=== PATIENT | male | born 1965 | race African-American/Black ===

== ENCOUNTER 2020-10-29 12:32 | Inpatient (IN) | payer OTHER ==
[~2020-10-29] VITALS: Ht 172.7 cm; Wt 69.7 kg
[2020-10-29 12:48] VITALS: BP 155/98
[2020-10-29 12:59] LABS: URINE BILIRUBIN 1+ (Negative); URINE BLOOD NEGATIVE (Negative); URINE CLARITY CLEAR; URINE COLOR YELLOW; URINE GLUCOSE-RANDOM* TRACE (Negative); URINE KETONES TRACE (Negative); URINE NITRITE-REFLEX NEGATIVE (Negative); URINE PROTEIN (DIPSTICK) 2+ (Negative); URINE SPECIFIC GRAVITY 1.025 (1.005-1.035); URINE UROBILINOGEN >= 8.0 E.U./dl (0.2-1.0)
[2020-10-29 13:03] LABS: ICTOTEST (BILI CONFIRMATORY) Positive (Negative); URINE LEUKOCYTES-REFLEX 1+ (Negative)
[2020-10-29 13:25] LABS: CALCIUM 8.4 mg/dL (8.5-10.1); CREATININE 0.8 mg/dL (0.7-1.3); POTASSIUM 3.2 mmol/L (3.5-5.1)
[2020-10-29 13:29] LABS: HYALINE CASTS 0-3 Few /LPF (None Seen); SQUAMOUS >10 Many /LPF (0-3); URINE RBC None Seen /HPF (NONE SEEN); URINE WBC-REFLEX 6-15 Few /HPF (0-5)
[2020-10-29 13:30] LABS: BACTERIA-REFLEX 1-9 Few /HPF (None Seen); CRYSTALS None Seen /LPF (None Seen)
[2020-10-29 13:48] LABS: HEMOGLOBIN 6.8 gm/dL (14.0-18.0); MCV 63.5 fL (80.0-100.0)
[2020-10-29 13:50] LABS: HEMATOCRIT 23.8 % (42.0-52.0); MCH 18.3 pg (26.0-34.0); MCHC 28.8 g/dL (28.0-37.0); PLATELET COUNT 257 thou/uL (150-400); RBC 3.74 mil/uL (4.50-6.00); RDW 23.3 % (10.5-14.5); WBC 5.3 thou/uL (4.0-11.0)
[2020-10-29 13:55] LABS: ALBUMIN 2.9 g/dL (3.4-5.0); TOTAL BILIRUBIN 2.3 mg/dL (0.2-1.0)
[2020-10-29 13:56] LABS: TOTAL PROTEIN 7.2 g/dL (6.4-8.2)
[2020-10-29 14:34] LABS: ABSOLUTE NEUTROPHILS 3.4 thou/uL (1.4-8.2)
[2020-10-29 14:35] LABS: ANISOCYTOSIS 3+
[2020-10-29 14:36] LABS: HYPOCHROMASIA 2+; MICROCYTES 3+
--- NOTE | 2020-10-29 14:55 | EKG ---
[address] [address] ELECTROCARDIOGRAM REPORT Name: SOHAIL ARRIOLA Room #: [facility] M.R.#: [id number] Admission: Attend Phys: Discharge: Date of : 65 Report #: [id number] [facility] ED Test Date: 2020-10-29 Test Time: 13:24:03 Pat Name: SOHAIL ARRIOLA Department: Room: Gender: Tailer In: : 1965 Requested By: Leidy Jerome Order Number: [id number] MD: Justyn Pacheco Measurements Intervals [place] Rate: 102 P: 26 AK: 163 QRS: 31 QRSD: 96 T: 198 QT: 355 QTc: 463 Interpretive Statements Sinus tachycardia Probable left atrial enlargement Nonspecific T abnrm, anterolateral leads No previous ECG available for comparison Electronically Signed On 10-29-2020 14:55:29 CDT by Justyn Pacheco [email or web address] <ELECTRONICALLY SIGNED> By: Justyn Pacheco MD, [facility] 10/29/20 1455 1324 1324 Justyn Pacheco MD, FACC /EPI
[2020-10-29 16:48] LABS: AMP/METHAMP Negative (Negative); BARBITURATES Negative (Negative); BENZODIAZEPINES Negative (Negative); COCAINE Negative (Negative); METHADONE Negative (Negative); OPIATES Negative (Negative); PCP Negative (Negative)
[2020-10-29 16:55] LABS: INR 1.29; PROTIME 13.9 Seconds (10.5-12.1)
[2020-10-29 17:17] LABS: % SATURATION 4 % (20-39); IRON 17 ug/dL (65-175); TIBC 449 ug/dL (250-450)
[2020-10-29 18:02] VITALS: BP 176/111
[2020-10-29 19:09] VITALS: BP 145/95
[2020-10-29 19:30] VITALS: BP 133/100
[2020-10-30] VITALS (9 sets, daily range): BP systolic 96–144; BP diastolic 65–90
--- NOTE | 2020-10-30 02:58 | NUR ---
pt arrived on the unit around 1914, alert and orientedx4, sr on tele, denies pain, admission assessment,hx and education completed and as charted, meds given as per mar, no needs at this time, will continue to monitor and follow poc
[2020-10-30 05:24] LABS: RDW 22.5 % (10.5-14.5)
[2020-10-30 05:27] LABS: HEMATOCRIT 22.2 % (42.0-52.0); HEMOGLOBIN 6.5 gm/dL (14.0-18.0); MCH 18.6 pg (26.0-34.0); MCHC 29.1 g/dL (28.0-37.0); MCV 63.8 fL (80.0-100.0); RBC 3.48 mil/uL (4.50-6.00); WBC 5.2 thou/uL (4.0-11.0)
[2020-10-30 05:44] LABS: CREATININE 0.9 mg/dL (0.7-1.3); POTASSIUM 3.1 mmol/L (3.5-5.1)
[2020-10-30 05:48] LABS: ALBUMIN 3.1 g/dL (3.4-5.0); MAGNESIUM 1.8 mg/dL (1.8-2.4); PHOSPHORUS 2.9 mg/dL (2.5-4.9)
--- NOTE | 2020-10-30 13:27 | NUR ---
TOOK OVER CARE FOR PATIENT AT 0700. PATIENT ALERT AND ORIENTATED. TRANSFUSED 1 UNIT PRBC. PATIENT TOLERATED INFUSION. VITAL SIGNS WITHIN NORMAL LIMITS. PATIENT DENIES SHORTNESS OF BREATH AND CHEST PAIN. PATIENT RESTING AT THIS TIME IN BED. DENIES ANY ADDITIONAL NEEDS. FALL PRECAUTIONS IN PLACE.
[2020-10-30 19:20] LABS: HEMATOCRIT 27.7 % (42.0-52.0); HEMOGLOBIN 7.9 gm/dL (14.0-18.0)
[2020-10-31] VITALS (7 sets, daily range): BP systolic 132–149; BP diastolic 86–91
--- NOTE | 2020-10-31 05:28 | NUR ---
a&ox4, sr on tele, denies pain or sob, assessments a charted, 24-hr urine collection in place, orders for k+ replacement received and implemented, abdpmen remains distended, r. testicular swelling noted, denies pain, no needs at this time, vss, will continue to monitor and follow poc
[2020-10-31 05:36] LABS: HIV ANTIBODY Non Reactive (Non Reactive)
[2020-10-31 06:05] LABS: HAV IgM AB (ANTI-HAV IgM) Negative (Negative); HEPATITIS B SURFACE AG Negative (Negative); HEPATITIS C VIRUS AB <0.1 (0.0-0.9)
--- NOTE | 2020-10-31 11:46 | NUR ---
PT ALERT AND ORIENTED TIMES FOUR. VSS. PT DENIES PAIN/SOA. PT TOLERATES CLEAR LIQUID DIET TODAY. GI PROCEDURES ORDER FOR TOMORROW. PT UP AB ELEONORA WITH STEADY GAIT. WILL CONTINUE TO MONITOR.
[2020-10-31 16:46] LABS: COLLECTION DURATION 24 hours; TOTAL VOLUME 3250 mL
[2020-11-01 04:21] VITALS: BP 154/95
--- NOTE | 2020-11-01 04:46 | NUR ---
pt alert and oriented, aware of gi procedures scheuled today, bowel prep completed, denies pain or soa, vss, assessments as charted, no needs at this time, will continue to monitor per poc
[2020-11-01 05:02] LABS: CALCIUM 8.8 mg/dL (8.5-10.1); CREATININE 0.9 mg/dL (0.7-1.3); POTASSIUM 3.4 mmol/L (3.5-5.1)
[2020-11-01 08:45] VITALS: BP 159/104
--- NOTE | 2020-11-01 09:01 | 2DMMODE ---
[facility] [place] [address] 2 D/M-MODE ECHOCARDIOGRAM Name: SOHAIL ARRIOLA Room #: 207-P ADM IN M.R.#: [id number] Admission: 10/29/20 Attend Phys: Isaac Whitehead Discharge: Date of : 65 Report #: [id number] THIS REPORT FOR: cc: NO FAMILY PHYSICIAN or PCP NO FAMILY PHYSICIAN or PCP Justyn Pacheco MD [facility] ~ APPROVED REPORT Study performed: 11/01/2020 08:17:04 EXAM: Comprehensive 2D, Doppler, and color-flow Echocardiogram Patient Location: Bedside Room #: 207 Status: routine BSA: 1.84 HR: 76 bpm BP: 154/95 mmHg Rhythm: NSR Other Information Study Quality: Good Indications Short of breath, anasarca. Hx: ETOH, drug and tob abuse. 2D Dimensions IVSd: 11.33 (7-11mm) LVOT Diam: 21.80 (18-24mm) LVDd: 54.94 mm PWd: 11.49 (7-11mm) LVDs: 46.90 (25-40mm) Left Atrium: 46.71 (27-40mm) Aortic Root: 31.91 mm Volumes Left Atrial Volume (Systole) Single Plane 4CH: 105.47 mL Single Plane 2CH: 95.60 mL LA ESV Index: 60.00 mL/m2 Aortic Valve AoV Peak Jan.: 1.05 m/s AO Peak Gr.: 4.37 mmHg LVOT Max P.23 mmHg LVOT Max V: 0.75 m/s JULIAN Vmax: 2.66 cm2 [facility] [address] [place] [address] 2 D/M-MODE ECHOCARDIOGRAM Name: SOHAIL ARRIOLA Room #: 207-P [facility] IN ..#: [id number] Admission: 10/29/20 Attend Phys: Isaac Cárdenas Discharge: Date of : 65 Report #: [id number] Mitral Valve E/A Ratio: 3.6 MV Decel. Time: 115.59 ms MV E Max Jan.: 0.96 m/s MV A Jan.: 0.27 m/s MV PHT: 33.52 ms IVRT: 87.66 ms Pulmonary Valve PV Peak Jan.: 0.69 m/s PV Peak Gr.: 1.90 mmHg Tricuspid Valve TR Peak Jan.: 2.58 m/s RAP Estimate: 10.00 mmHg TR Peak Gr.: 27.00 mmHg PA Pressure: 37.00 mmHg Left Ventricle The left ventricle is normal size. There is normal left ventricular wall thickness. Left ventricular systolic function is moderate to severely decreased. LVEF is 30-35%. Severe diastolic dysfunction is present. Right Ventricle Right ventricle is dilated. Right ventricle is mildly hypokinetic. Atria Left atrium is severely dilated. Right atrium is mildly dilated. Aortic Valve The aortic valve is normal in structure. Trace aortic regurgitation. There is no aortic valvular stenosis. Mitral Valve The mitral valve is normal in structure. Moderate mitral regurgitation. Tricuspid Valve The tricuspid valve is normal in structure. Mild tricuspid regurgitation. Estimated PAP is 37mmHg. Pulmonic Valve The pulmonary valve is normal in structure. Trace pulmonic regurgitation. [facility] [address] [place] [address] 2 D/M-MODE ECHOCARDIOGRAM Name: SOHAIL ARRIOLA Room #: 207-P ADM IN .R.#: [id number] Admission: 10/29/20 Attend Phys: Isaac Cárdenas Discharge: Date of : 65 Report #: [id number] Great Vessels The aortic root is normal in size. IVC is normal in size and collapses <50% with inspiration. Pericardium Small pericadial effusion. <Conclusion> Normal left ventricle size/wall thickness Global hypokinesis ejection fraction 30-35% Right ventricle mildly dilated/moderately hypokinetic Left atrium moderately to severely dilated Mildly dilated right atrium Normal aortic valve structure and function Moderate mitral valve insufficiency Mild tricuspid valve insufficiency Pulmonary systolic pressure estimated 37 mmHg Normal aortic root size Small posterior pericardial effusion <ELECTRONICALLY SIGNED> By: Justyn Pacheco MD, FACC 11/01/20900 0 0 Justyn Pacheco MD, FACC /INF
[2020-11-01 09:34] LABS: HEMATOCRIT 28.1 % (42.0-52.0); HEMOGLOBIN 8.1 gm/dL (14.0-18.0); MCH 19.6 pg (26.0-34.0); MCHC 28.8 g/dL (28.0-37.0); MCV 68.2 fL (80.0-100.0); RBC 4.12 mil/uL (4.50-6.00); RDW 26.3 % (10.5-14.5); WBC 6.5 thou/uL (4.0-11.0)
[2020-11-01 12:15] VITALS: BP 98/47
[2020-11-01 16:05] VITALS: BP 158/102
[2020-11-01 20:49] VITALS: BP 137/84
--- NOTE | 2020-11-02 03:07 | NUR ---
PT CARE ASSUMED WITH PT SITTING IN THE CHAIR WATCHING TV .PT IS A/O X4.PT IS UP AD ELEONORA.PT DENIED PAIN, NAUSEA,VOMITIONG AND DIARRHEA.PT TAKE MEDS WHOLE WITH NO ISSUES.PT ON ROOM AIR.WAITING FOR CARDIOLOGY TO SEE .WILL CONTINUE TO MONITOR PER POC
[2020-11-02 04:45] VITALS: BP 132/81
[2020-11-02 08:30] VITALS: BP 148/85
[2020-11-02 08:57] LABS: URINE CREATININE 25.07 mg/dL; URINE CREATININE (GM/24H) 1 g/24hr (0.95-2.49); URINE PROTEIN (MG/DL) < 6.0 mg/dL; URINE PROTEIN mg/24 hr ND mg/24hr (<149.1)
[2020-11-02 09:30] LABS: ALBUMIN 3.5 g/dL (3.4-5.0); DIRECT BILIRUBIN 1.3 mg/dL (<0.1-0.2); TOTAL BILIRUBIN 2.2 mg/dL (0.2-1.0); TOTAL PROTEIN 7.7 g/dL (6.4-8.2)
--- NOTE | 2020-11-02 12:15 | P ---
[facility] [place] [address] PROCEDURE REPORT Name: SOHAIL ARRIOLA Room #: 207-P [facility] IN M.R.#: [id number] Admission: 10/29/20 Attend Phys: Isaac Whitehead Discharge: Date of : 65 Report #: [id number] THIS REPORT FOR: cc: NO FAMILY PHYSICIAN or PCP NO FAMILY PHYSICIAN or PCP Rodney Amin MD ~ cc: Isaac Whitehead MD DATE OF SERVICE: 11/01/2020 PROCEDURE PERFORMED: Upper endoscopy. HISTORY OF PRESENT ILLNESS: The patient is a 55-year-old male who was admitted with generalized weakness and anemia. Transfused 1 unit of packed cells. He does report blood in the stools at times. No previous history of endoscopy. He has a history of alcohol abuse. CT scan of the abdomen and pelvis showing fatty liver changes and minimal ascites. He denies any nausea, vomiting, heartburn or hematemesis. Plan is for EGD and colonoscopy today. Stools were Hemoccult negative x 1. No family history of colon cancer. DESCRIPTION OF PROCEDURE: The risks and benefits of the procedure were explained to the patient, those risks including but not limited to bleeding, perforation and the risk of sedation. He understood these risks and gave informed consent. Sedation was given using propofol per anesthesia. Next, using a standard Olympus upper endoscope, the scope was placed in the patient's mouth and advanced under direct vision through the esophagus, stomach and into the second portion of the duodenum. The larynx was normal in appearance. The esophagus was normal throughout. The GE junction was normal. No evidence of varices or esophagitis. Overall, the gastric mucosa was normal. The pylorus was normal and patent. The duodenal bulb, first and second portion were all normal. The scope was then withdrawn and the procedure terminated. The patient tolerated the procedure well. IMPRESSION: Normal upper endoscopy. RECOMMENDATIONS: We will proceed with colonoscopy next today. Thank you for allowing me to participate in his care. <ELECTRONICALLY SIGNED> By: Rodney Amin MD 11/02/20 1215 1240 2314 Rodney Amin MD /nt
--- NOTE | 2020-11-02 12:15 | P ---
[facility] [place] [address] PROCEDURE REPORT Name: SOHAIL ARRIOLA Room #: 207-P [facility] IN M.R.#: [id number] Admission: 10/29/20 Attend Phys: Isaac Whitehead Discharge: Date of : 65 Report #: [id number] THIS REPORT FOR: cc: NO FAMILY PHYSICIAN or PCP NO FAMILY PHYSICIAN or PCP Rodney Amin MD ~ cc: Isaac Whitehead MD DATE OF SERVICE: 11/01/2020 PROCEDURE PERFORMED: Colonoscopy with polypectomy. HISTORY OF PRESENT ILLNESS: The patient is a 55-year-old male who was admitted with significant anemia, 7 months ago, noted dark blood per rectum. He has also noted some bright red blood in his stool approximately 3 weeks ago. No previous history of endoscopy. Upper endoscopy was just performed, which was normal. His hemoglobin on admission was 6.8. He was transfused 1 unit, his hemoglobin is 8.1 today. No family history of colon cancer. DESCRIPTION OF PROCEDURE: The risks and benefits of the procedure were explained to the patient, those risks including but not limited to bleeding, perforation and the risk of sedation. He understood these risks and gave informed consent. Sedation was given using propofol per Anesthesia. Next, a digital rectal exam was initially performed, which was normal. Next, using a standard Olympus colonoscope, the scope was placed in the patient's anus and advanced under direct vision to the cecum. The overall prep was excellent. The cecum and ileocecal valve were normal in appearance. In the proximal ascending colon, a 7 mm pedunculated polyp was noted. This was removed by snare cautery. Multiple diverticula were noted throughout the ascending, transverse, descending and sigmoid colon. No evidence of inflammation. No evidence of bleeding, otherwise negative. The rectal mucosa was normal. On retroflexion, small nonbleeding internal hemorrhoids were noted. The scope was then withdrawn and the procedure terminated. The patient tolerated the procedure well. IMPRESSION: 1. Ascending colon polyp. 2. Pandiverticulosis. 3. Small internal hemorrhoids. 4. Otherwise, normal colonoscopy. RECOMMENDATIONS: 1. Await biopsy results. 2. Repeat colonoscopy in 5 years. 3. No evidence of active bleeding on exam today. The patient may have had a diverticular bleed or bleed from internal hemorrhoids in the past. At this time, hemoglobin is stable at 8.1. Stool was Hemoccult negative. Agree with [address] [address] PROCEDURE REPORT Name: SOHAIL ARRIOLA Room #: 207-P [facility] IN .R.#: [id number] Admission: 10/29/20 Attend Phys: Isaac Whitehead Discharge: Date of : 65 Report #: [id number] discharge home in the near future. Thank you for allowing me to participate in his care. <ELECTRONICALLY SIGNED> By: Rodney Amin MD 11/02/20 1215 1312 0024 Rodney Amin MD /august
[2020-11-02 12:20] VITALS: BP 129/71
[2020-11-02 17:05] VITALS: BP 134/27
--- NOTE | 2020-11-02 18:01 | NUR ---
Met with patient who admits with swelling with heart failure diagnosis. Patient with fatty liver and hepatits. Patient reports he lives in [facility] alone. Father in town is his support. 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 he did not realize the severity of ETOH abuse. He plans to sustain. He does not have health isurance. Gave patient Health reource guide and [facility] information. casemgt following
[2020-11-02 19:27] VITALS: BP 140/79
--- NOTE | 2020-11-03 02:47 | NUR ---
11/02/201899 PATIENT RESTING IN ROOM LYING IN BED WATCHING TV. HE IS AAOX4. PT IS ANGRY WHEN TOLD THAT HE WILL NOT BE DISCHARGING TONIGHT. STATES THAT HE NEEDS TO GET HOME AND GET BACK TO WORK. PATIENT SAYS THAT THE DR WAS SUPPOSED TO COME BACK AND SEE HIM BUT HAS NOT. STATES THAT HE WANTS TO BE DISCHARGED IN THE AM. VOICES THAT HE IS NOT GOING TO ALLOW ANYBODY TO POKE HIM WITH ANY MORE NEEDLES. 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 PATIENT IS COMPLIANT WITH MEDICATION. SWELLING IN BLE HAS IMPROVED PER PT. DENIES PAIN OR SHORTNESS OF BREATH. AMBULATES INDEPENDENTLY. VSS. WILL CONTINUE TO MONITOR FOR CHANGES IN PATIENT STATUS.
[2020-11-03 04:30] VITALS: BP 131/74
[2020-11-03 08:02] VITALS: BP 146/72
[2020-11-03] MEDS ORDERED: SPIRONOLACTONE25 M1 PO (09:47)
[2020-11-03] MEDS ORDERED: K-DUR 20 MEQ T20 MEQ PO (09:47)
[2020-11-03] MEDS ORDERED: COZAAR 25 MG TA25 M1 PO (09:47)
[2020-11-03] MEDS ORDERED: FOLIC ACID1 MG PO (09:47)
[2020-11-03] MEDS ORDERED: NICOTINE PATCH1 EAC3 TRANSDERM (09:47)
[2020-11-03] MEDS ORDERED: FERREX 150 PLU1 EAC1 PO (09:47)
[2020-11-03] MEDS ORDERED: PROTONIX 20 MG20 M1 PO (09:47)
[2020-11-03] MEDS ORDERED: VITAMIN B-1100 M2 PO (09:47)
[2020-11-03] MEDS ORDERED: CARVEDILOL3.125 MG PO (09:47)
[2020-11-03 10:42] VITALS: BP 146/72
--- NOTE | 2020-11-03 11:29 | NUR ---
PT IS A&OX4. PT EXPRESSED THAT HE WAS NOT HAPPY HE DID NOT GET TO GO HOME YESTERDAY AND STATED THAT HE WILL GO HOME TODAY REGARDLESS. REVIEWED DISCHARGE PAPERWORK AND INSTRUCTIONS. PT VERBALIZED UNDERSTANDING. 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 WILL WAIT UNTIL MEDICATIONS ARE READY TO WALK PT OUT.
--- NOTE | 2020-11-03 13:58 | NUR ---
PT AMBULATED TO EXIT. PT RECEIVED DISCHARGE MEDICATIONS FROM PHARMACY AND TOOK ALL BELONGINGS.
--- NOTE | 2020-11-03 14:20 | NUR ---
[facility] options reviewed at bedside. All scripts vouchered per cm/[facility] outpt pharmacy and issued directly to the pt prior to dc today. Pt grateful and will f/u with the [facility] for pcp appt and the walkin clinic in the interium. Pt up ad imelda and able to walk out with unit RN.
--- NOTE | 2020-11-03 17:07 | PATH ---
[facility] [address] [place] [address] PATHOLOGY RPT PROCEDURE Name: ROLLY RAMEY Room #: 207-P DIS IN M.R.#: [id number] Admission: 10/29/20 Date of : 65 Discharge: 11/03/20 Report #: [id number] Path Case #: [id number] [facility] Accession Number: [id number] . 01 Material submitted: . colon - ASCENDING COLON POLYP HOT SNARE. Modifiers: ascending . 01 Clinical history: . EGD/COLONOSCOPY ANEMIA ANASARCA . 02 Diagnosis: Polyp, ascending colon polyp, endoscopic biopsy: - Tubular adenoma. - Negative for high-grade dysplasia. (IUV:christine; 11/03/2020) QMS 11/03/2020 1449 Local . 02 Electronically signed: . Andressa Saxena MD, Pathologist NPI- [id number] . 01 Gross description: . The specimen is received in formalin, labeled "Rolly Ramey, ascending colon polyp". Received is a segment of disrupted light suresh tissue measuring 0.9 cm in maximum dimensions. The specimen is submitted entirely in cassette A1. (CAA; 11/02/2020) QA/QA 11/02/2020 1104 Local . 02 Pathologist provided ICD-10: D12.2 . 02 CPT . 317215 Specimen Comment: A courtesy copy of this report has been sent to [phone], [phone] Specimen Comment: [phone] Specimen Comment: Report sent to / DR PARISI Performed at: [address] [id number] MD Naeem Tee MD Phone: [phone] Performed at: [address] [id number] [address] [address] PATHOLOGY RPT PROCEDURE Name: ROLLY RAMEY Room #: 207-P DIS IN M.R.#: [id number] Admission: 10/29/20 Date of : 65 Discharge: 11/03/20 Report #: [id number] Path Case #: [id number] MD Andressa Saxena MD Phone: [phone]
== END 2020-11-03 13:10 | disposition home or self-care (01) | DRG 432 ==
LOC: ER 12:32 → 2N 16:38 → EDBD 16:38 → EROBS 16:38 → 2N 19:14
PROVIDERS: Nurse Practitioner; Nurse Practitioner Family; ADMIT Hospitalist; ATTEND Hospitalist
DX: K70.10 Alcoholic hepatitis without ascites (principal); I50.21 Acute systolic (congestive) heart failure; E46 Unspecified protein-calorie malnutrition; K76.6 Portal hypertension; I42.6 Alcoholic cardiomyopathy; F10.239 Alcohol dependence with withdrawal, unspecified; D62 Acute posthemorrhagic anemia; I11.0 Hypertensive heart disease with heart failure; N43.3 Hydrocele, unspecified; E87.6 Hypokalemia; R74.01 Elevation of levels of liver transaminase levels; F41.9 Anxiety disorder, unspecified; Z20.822 Contact with and (suspected) exposure to COVID-19; K57.30 Diverticulosis of large intestine without perforation or abscess without bleeding; K64.8 Other hemorrhoids; K70.30 Alcoholic cirrhosis of liver without ascites; K70.0 Alcoholic fatty liver; Z71.41 Alcohol abuse counseling and surveillance of alcoholic; Z68.23 Body mass index [BMI] 23.0-23.9, adult; Z91.19 Patient's noncompliance with other medical treatment and regimen; Z71.6 Tobacco abuse counseling
CPT/HCPCS: 10081; 62110; 62900; 70005